=== PATIENT | male | born 1995 | race Caucasian/White ===

== ENCOUNTER 2022-09-07 21:54 | Inpatient (IN) ==
[2022-09-07] MEDS ORDERED: MoRPHine SULFATE 4 MG/ML 1 ML CARP\\VIAL IV STA (22:07)
[2022-09-07] MEDS ORDERED: ONDANSETRON INJ 2 MG/ML 2 ML VIAL IV STA (22:07)
[2022-09-07] MEDS ORDERED: SODIUM CHLORIDE 0.9% 1000ML 1,000 ML IV STA (22:07)
--- NOTE | 2022-09-07 22:30 | Emergency Department Note ---
History of Present Illness General Chief complaint: Abdominal Pain Stated complaint: ABDOMINAL PAIN Time Seen by Provider: 09/07/22 21:59 History of Present Illness This 26-year-old Congolese-speaking gentleman presents to the ER with friend for evaluation of abdominal pain for the past day with nausea and vomiting. Patient denies prior abdominal surgeries, drug allergies tobacco or drug use. Patient denies testicular pain, penile pain, urinary symptoms. No injury to the area. No other concerns per patient. The language line was utilized. Past Med/Surg History Social History Smoking Status: Never smoker Feels Safe at Home: Yes Review of Systems A total of 10 systems reviewed and were otherwise negative Physical Exam Vital Signs Vital Signs - 24 hr 09/07/22 21:56 Temperature 36.7 C Temperature Source Temporal Artery Scan Respiratory Rate 75 H Blood Pressure 109/64 Blood Pressure Mean 79 Pulse Oximetry 96 Oxygen Delivery Method Room Air Sepsis New/Unexplained Change in Mental Status No Sepsis Action Taken by Nursing No Action Required VITALS: Vitals are noted on the nurse's note and reviewed by myself. Vital signs stable. GENERAL: Pleasant gentleman, in no acute distress, nondiaphoretic, well- developed well-nourished. SKIN: The skin was without rashes, erythema, edema, or bruising. There is no tenting of the skin. Capillary reflex less than 2 seconds. HEAD: Normocephalic atraumatic. EARS: External auditory canals clear EYES: Pupils equal round and reactive to light and accommodation. Conjunctivae without injection, sclerae without icterus. Extraocular movements intact. NOSE: Patent, turbinates without inflammation or discharge. MOUTH: Mucous membranes moist. Pharynx without erythema or exudate. Uvula midline. Airway patent. Tongue does not deviate. NECK: Supple without nuchal rigidity. No lymphadenopathy. No thyromegaly. Cervical spine is nontender. No JVD. HEART: Regular rate and rhythm LUNGS: Clear to auscultation bilaterally without wheezes, rales or rhonchi. No retractions or accessory muscle use. ABDOMEN: Positive bowel sounds x 4. Normal tympanic percussion. Soft, diffusely tender with increased tenderness in the right lower quadrant, without masses or organomegaly. Cervantes sign negative. No guarding or rebound tenderness. No CVA tenderness MUSCULOSKELETAL: No muscle atrophy, erythema, or edema noted. NEURO: Patient was alert and oriented to person place and time. Normal se nsation to light and sharp touch. No focal neurological deficits. Course Administered Medications Discontinued Medications Sodium Chloride (Nss 1000ml) 1,000 mls @ 999 mls/hr IV .Q1H1M STA Stop: 09/07/22 23:07 Last Admin: 09/07/22 23:19 Dose: 999 mls/hr Documented By: YAHAIRA Piperacillin Sod/Tazobactam Sod (Zosyn) 4.5 gm in 120 mls @ 240 mls/hr IV NOW ONE Stop: 09/07/22 23:12 Last Admin: 09/07/22 23:18 Dose: 240 mls/hr Documented By: YAHAIRA Ioversol (Optiray 320 100ml) 100 ml IV ONCE ONE Stop: 09/07/22 22:40 Last Admin: 09/07/22 22:39 Dose: 93 ml Documented By: JOHN Morphine Sulfate (Morphine Sulfate 4 Mg/Ml 1 Ml Carp\Vial) 4 mg IV NOW STA Stop: 09/07/22 22:08 Last Admin: 09/07/22 23:18 Dose: 4 mg Documented By: YAHAIRA Ondansetron HCl (Ondansetron Inj 2 Mg/Ml 2 Ml Vial) 4 mg IV NOW STA Stop: 09/07/22 22:08 Last Admin: 09/07/22 23:18 Dose: 4 mg Documented By: YAHAIRA Medical Decision Making Medical Records Attestation: I reviewed the patient's medical records. Home Medications Current Medication List: was personally reviewed by me Laboratory Data Attestation: I reviewed the patient's lab results. 09/07/22 22:18 09/07/22 22:18 Lab Results 09/07/22 09/07/22 09/07/22 Range/Units 22:18 22:18 22:18 WBC 17.71 H (4.8-10.8) K/ul RBC 4.72 (4.70-6.10) M/uL Hgb 14.3 (14.0-18.0) g/dl POC Hgb (14.0-18.0) g/dl Hct 40.9 L (42.0-52.0) % POC Hct (42-52) % MCV 86.7 (80.0-100.0) fL MCH 30.3 (25.0-34.0) pg MCHC 35.0 (32.0-36.0) g/dL RDW Std Deviation 41.8 (36.4-46.3) fL RDW Coeff of Roni 13.2 (11.5-14.5) % Plt Count 281 (130-400) K/uL MPV 9.3 L (9.4-12.4) fL Immature Gran % (Auto) 0.5 % Neut % (Auto) 83.7 % Lymph % (Auto) 6.6 % Lassen % (Auto) 9.0 % Eos % (Auto) 0.0 % Baso % (Auto) 0.2 % Neut # (Auto) 14.82 H (1.40-6.50) K/uL Lymph # (Auto) 1.17 L (1.2-3.4) K/uL Lassen # (Auto) 1.60 H (0.11-0.59) K/uL Eos # (Auto) 0.00 (0-0.50) K/uL Baso # (Auto) 0.03 (0-0.2) K/uL Immature Gran # (Auto) 0.09 (0.01-0.20) K/uL POC Sodium (135-144) mmol/L Sodium 133 L (136-145) mmol/L POC Potassium (3.3-5.0) mmol/L Potassium 3.6 (3.5-5.1) mmol/L POC Chloride (101-112) mmol/L Chloride 100 (98-107) mmol/L Carbon Dioxide 24 (21-32) mmol/L POC Total CO2 (24-31) mmol/L Anion Gap 9 (3-11) POC Anion Gap (16-25) mmol/L POC BUN (7-18) mg/dl BUN 13 (6-23) mg/dl Creatinine 0.84 (0.6-1.4) mg/dl POC Creatinine (0.6-1.3) mg/dl Est Cr Clr Drug Dosing 115.7 ml/min Est GFR ( Amer) 140.1 ml/min Est GFR (Non-Af Amer) 120.8 ml/min BUN/Creatinine Ratio 15.5 (10-20) Glucose 111 H (70-99(Fasting)) mg/dl POC Glucose (other) (70-99) mg/dl Calcium 9.9 (8.6-10.3) mg/dl POC Ioniz Calcium Mikaela (1.12-1.32) mmol/l Total Bilirubin 1.0 (0.2-1.0) mg/dl AST 26 (13-39) U/L ALT 64 H (7-52) U/L Alkaline Phosphatase 92 (34-104) U/L Total Protein 7.6 (6.0-8.3) gm/dl Albumin 4.3 (3.4-5.0) gm/dl Globulin 3.3 (2.5-4.0) gm/dl Albumin/Globulin Ratio 1.3 (0.9-2) Lipase 10 L (11-82) U/L Urine Color Yellow Urine Appearance Clear (Clear) Urine pH 7.5 (4.5-7.5) Ur Specific [place] 1.007 (1.000-1.030) Urine Protein Negative (Negative) Urine Glucose (UA) Negative (Negative) Urine Ketones Negative (Negative) Urine Blood 1+ H (Negative) Urine Nitrite Negative (Negative) Urine Bilirubin Negative (Negative) Urine Urobilinogen Negative (Negative) Ur Leukocyte Esterase Trace H (Negative) Urine WBC (Auto) 1-5 (0-5) /hpf Urine RBC (Auto) 5-10 H (0-4) /hpf U Hyaline Cast (Auto) 0 (0-5) /lpf U Epithel Cells (Auto) 0-5 (0-5) /lpf Urine Bacteria (Auto) Negative (Negative) 09/07/ Range/Units 22:26 WBC (4.8-10.8) K/ul RBC (4.70-6.10) M/uL Hgb (14.0-18.0) g/dl POC Hgb 15.6 (14.0-18.0) g/dl Hct (42.0-52.0) % POC Hct 46 (42-52) % MCV (80.0-100.0) fL MCH (25.0-34.0) pg MCHC (32.0-36.0) g/dL RDW Std Deviation (36.4-46.3) fL RDW Coeff of Roni (11.5-14.5) % Plt Count (130-400) K/uL MPV (9.4-12.4) fL Immature Gran % (Auto) % Neut % (Auto) % Lymph % (Auto) % Lassen % (Auto) % Eos % (Auto) % Baso % (Auto) % Neut # (Auto) (1.40-6.50) K/uL Lymph # (Auto) (1.2-3.4) K/uL Lassen # (Auto) (0.11-0.59) K/uL Eos # (Auto) (0-0.50) K/uL Baso # (Auto) (0-0.2) K/uL Immature Gran # (Auto) (0.01-0.20) K/uL POC Sodium 134 L (135-144) mmol/L Sodium (136-145) mmol/L POC Potassium 3.6 (3.3-5.0) mmol/L Potassium (3.5-5.1) mmol/L POC Chloride 98 L (101-112) mmol/L Chloride (98-107) mmol/L Carbon Dioxide (21-32) mmol/L POC Total CO2 24 (24-31) mmol/L Anion Gap (3-11) POC Anion Gap 17.0 (16-25) mmol/L POC BUN 12 (7-18) mg/dl BUN (6-23) mg/dl Creatinine (0.6-1.4) mg/dl POC Creatinine 0.8 (0.6-1.3) mg/dl Est Cr Clr Drug Dosing ml/min Est GFR ( Amer) ml/min Est GFR (Non-Af Amer) ml/min BUN/Creatinine Ratio (10-20) Glucose (70-99(Fasting)) mg/dl POC Glucose (other) 117 H (70-99) mg/dl Calcium (8.6-10.3) mg/dl POC Ioniz Calcium Mikaela 1.26 (1.12-1.32) mmol/l Total Bilirubin (0.2-1.0) mg/dl AST (13-39) U/L ALT (7-52) U/L Alkaline Phosphatase (34-104) U/L Total Protein (6.0-8.3) gm/dl Albumin (3.4-5.0) gm/dl Globulin (2.5-4.0) gm/dl Albumin/Globulin Ratio (0.9-2) Lipase (11-82) U/L Urine Color Urine Appearance (Clear) Urine pH (4.5-7.5) Ur Specific [place] (1.000-1.030) Urine Protein (Negative) Urine Glucose (UA) (Negative) Urine Ketones (Negative) Urine Blood (Negative) Urine Nitrite (Negative) Urine Bilirubin (Negative) Urine Urobilinogen (Negative) Ur Leukocyte Esterase (Negative) Urine WBC (Auto) (0-5) /hpf Urine RBC (Auto) (0-4) /hpf U Hyaline Cast (Auto) (0-5) /lpf U Epithel Cells (Auto) (0-5) /lpf Urine Bacteria (Auto) (Negative) Imaging Data Attestation: I personally reviewed and interpreted this imaging study as follows: Radiologist's Impression: Abdomen/Pelvis CT 09/07/22 22:07 CR Exam(s): CT ABDOMEN + PELVIS With Contrast IV Amt: 93 ML OPTIRAY 320 EXAM: CT Abdomen and Pelvis With Intravenous Contrast CLINICAL HISTORY: Reason for exam: mid abd pain. TECHNIQUE: Axial computed tomography images of the abdomen and pelvis with intravenous contrast. CTDI is 9.56 mGy and DLP is 452.15 mGy-cm. Automated exposure control was utilized for the study. A dose lowering technique was utilized adhering to the principles of ALARA. CONTRAST: Patient received 93 ML OPTIRAY 320 of IV contrast COMPARISON: No relevant prior studies available. FINDINGS: Lung bases: Unremarkable. No mass. No consolidation. ABDOMEN: Liver: Unremarkable. No mass. Gallbladder and bile ducts: Unremarkable. No calcified stones. No ductal dilation. Pancreas: Unremarkable. No mass. No ductal dilation. Spleen: Unremarkable. No splenomegaly. Adrenals: Unremarkable. No mass. Kidneys and ureters: Unremarkable. No hydronephrosis or delayed nephrogram. Stomach and bowel: Unremarkable. No obstruction. No mucosal thickening. PELVIS: Appendix: Positive for acute appendicitis, consisting of a distended appendix measuring up to 1 cm with wall thickening and periappendiceal fat stranding. No perforation or abscess. Bladder: Unremarkable. No mass. Reproductive: Unremarkable as visualized. ABDOMEN and PELVIS: Intraperitoneal space: Unremarkable. No free air. No significant fluid collection. Bones/joints: No acute fracture. No dislocation. Soft tissues: Unremarkable. Vasculature: Unremarkable. No abdominal aortic aneurysm. Lymph nodes: Unremarkable. No enlarged lymph nodes. IMPRESSION: Positive for acute appendicitis, consisting of a distended appendix measuring up to 1 cm with wall thickening and periappendiceal fat stranding. No perforation or abscess. Communications: Verify Receipt Electronically signed by: Oleg Holloway MD 09/07/22 23:22 PM MDM Narrative Prior records/ancillary studies reviewed. Triage Nursing notes reviewed. Additional history obtained from friend. The patient's history was concerning for abdominal pain. Differential diagnosis: Etiologies such as appendicitis, diverticulitis, PUD, biliary pathology, UTI, pancreatitis, obstruction, mesenteric ischemia, aortic pathology, infections, inflammatory bowel disease, renal colic, as well as others were entertained. Physical examination findings: As above. ER treatment provided: An order was placed for continuous cardiac monitoring. The monitor shows a rate of 60-100 with a sinus rhythm per my Independent interpretation. IV fluids morphine and Zofran were ordered On reassessment the patient felt better. Diagnostics interpreted by me: The labs Independently Interpreted by myself revealed leukocytosis, stable H&H Imaging studies: CT concerning for appendicitis per my independent interpretation Consultation: A consultation was placed with the surgeon Dr. Breen. The case was discussed and diagnostics were reviewed. The patient was evaluated in the ER for further treat ment. Exam and history seem consistent with acute appendicitis. Labs and diagnostics were independent reviewed by myself. Patient started antibiotics. Surgery was consulted and the case was discussed. Patient was admitted to the surgical service. Patient was reassessed multiple times remained stable. Patient is agreeable treatment plan of admission. By the evaluation outlined above emergent etiologies such as diverticulitis, PUD, biliary pathology, UTI, pancreatitis, obstruction, mesenteric ischemia, aortic pathology, inflammatory bowel disease, renal colic, as well as others were deemed relatively unlikely. The pt informed about the findings as listed above. All questions were answered and pleased with the treatment. The chart was completed utilizing [employer] voice recognition software. Grammatical errors, random word insertions, pronoun errors, and incomplete sentences are an occassional consequence of this system due to software limitations, ambient noise, and hardware issues. Any formal questions or concerns about the content, text, or information contained within the body of this dictation should be directly addressed to the physician surgical physician assistant for clarification. Impression & Plan Acute appendicitis Discharge Plan Visit Data Chief Complaint: Abdominal Pain Stated Complaint: ABDOMINAL PAIN ED Provider: Mehdi Mishra ED Midlevel Provider: Carly Venegas Discharge Problem: Acute appendicitis Patient Disposition: Being Evaluated by Surgeon Condition: Good Forms Stand Alone Forms: [facility] Referrals Referrals: PCP,NO [Primary Care Provider] - Acute appendicitis Qualifiers: Acute appendicitis type: with localized peritonitis Appendicitis gangrene presence: unspecified whether gangrene present Appendicitis perforation presence: without perforation Appendicitis abscess presence: without abscess Qualified Code(s): K35.30 - Acute appendicitis with localized peritonitis, without perforation or gangrene
[2022-09-07 22:35] LABS: Appearance Urine Clear (Clear); Bacteria Urine Automated Negative (Negative); Bilirubin Urine Negative (Negative); Blood Urine 1+ (Negative); Cast Urine Automated 0 /lpf (0-5); Color Urine Yellow; Epithelial Cell Urine Auto 0-5 /lpf (0-5); Glucose Urine UA Negative (Negative); Ketones Urine Negative (Negative); Leukocyte Esterase Urine Trace (Negative); Nitrite Urine Negative (Negative); Protein Urine Negative (Negative); Specific Gravity Urine 1.007 (1.000-1.030); Urobilinogen Urine Negative (Negative); pH Urine 7.5 (4.5-7.5)
[2022-09-07 22:36] LABS: Basophils # (auto) 0.03 K/uL (0-0.2); Basophils % (auto) 0.2 %; Hematocrit (blood only) 40.9 % (42.0-52.0); Hemoglobin 14.3 g/dl (14.0-18.0); Immature Granulocytes # (auto) 0.09 K/uL (0.01-0.20); Immature Granulocytes % (auto) 0.5 %; Lymphocytes # (auto) 1.17 K/uL (1.2-3.4); Lymphocytes % (auto) 6.6 %; Mean Corpuscular Hemoglobin 30.3 pg (25.0-34.0); Mean Corpuscular Volume 86.7 fL (80.0-100.0); Mean Platelet Volume 9.3 fL (9.4-12.4); Neutrophils # (auto) 14.82 K/uL (1.40-6.50); Neutrophils % (auto) 83.7 %; Platelet Count 281 K/uL (130-400); RDW Coefficient of Variation 13.2 % (11.5-14.5); RDW Standard Deviation 41.8 fL (36.4-46.3); Red Blood Count 4.72 M/uL (4.70-6.10); White Blood Count 17.71 K/ul (4.8-10.8)
[2022-09-07] MEDS ORDERED: OPTIRAY 320 100ml IV ONE (22:39)
[2022-09-07 22:40] LABS: iSTAT Creatinine 0.8 mg/dl (0.6-1.3); iSTAT Hemoglobin 15.6 g/dl (14.0-18.0); iSTAT Ionized Calcium 1.26 mmol/l (1.12-1.32); iSTAT Potassium 3.6 mmol/L (3.3-5.0)
[2022-09-07] MEDS ORDERED: PIPERACILLIN/TAZOBACTAM 4.5 GM/120 ML BAG IV ONE (22:43)
[2022-09-07 22:51] LABS: Albumin Globulin Ratio 1.3 (0.9-2); Albumin Level 4.3 gm/dl (3.4-5.0); BUN Creatinine Ratio 15.5 (10-20); Calcium 9.9 mg/dl (8.6-10.3); Creatinine Clr Calc Pharmacy 115.7 ml/min; Est GFR (African American) 140.1 ml/min; Est GFR (Non-African American) 120.8 ml/min; Globulin 3.3 gm/dl (2.5-4.0); Potassium 3.6 mmol/L (3.5-5.1); Total Protein 7.6 gm/dl (6.0-8.3)
--- NOTE | 2022-09-07 23:22 | CT Scan Report ---
Exam(s): CT ABDOMEN + PELVIS With Contrast IV Amt: 93 ML OPTIRAY 320 EXAM: CT Abdomen and Pelvis With Intravenous Contrast CLINICAL HISTORY: Reason for exam: mid abd pain. TECHNIQUE: Axial computed tomography images of the abdomen and pelvis with intravenous contrast. CTDI is 9.56 mGy and DLP is 452.15 mGy-cm. Automated exposure control was utilized for the study. A dose lowering technique was utilized adhering to the principles of ALARA. CONTRAST: Patient received 93 ML OPTIRAY 320 of IV contrast COMPARISON: No relevant prior studies available. FINDINGS: Lung bases: Unremarkable. No mass. No consolidation. ABDOMEN: Liver: Unremarkable. No mass. Gallbladder and bile ducts: Unremarkable. No calcified stones. No ductal dilation. Pancreas: Unremarkable. No mass. No ductal dilation. Spleen: Unremarkable. No splenomegaly. Adrenals: Unremarkable. No mass. Kidneys and ureters: Unremarkable. No hydronephrosis or delayed nephrogram. Stomach and bowel: Unremarkable. No obstruction. No mucosal thickening. PELVIS: Appendix: Positive for acute appendicitis, consisting of a distended appendix measuring up to 1 cm with wall thickening and periappendiceal fat stranding. No perforation or abscess. Bladder: Unremarkable. No mass. Reproductive: Unremarkable as visualized. ABDOMEN and PELVIS: Intraperitoneal space: Unremarkable. No free air. No significant fluid collection. Bones/joints: No acute fracture. No dislocation. Soft tissues: Unremarkable. Vasculature: Unremarkable. No abdominal aortic aneurysm. Lymph nodes: Unremarkable. No enlarged lymph nodes. IMPRESSION: Positive for acute appendicitis, consisting of a distended appendix measuring up to 1 cm with wall thickening and periappendiceal fat stranding. No perforation or abscess. Communications: Verify Receipt Electronically signed by: Oleg Holloway MD 09/07/22 23:22 PM
--- NOTE | 2022-09-08 00:15 | Surgery Consultation ---
Date of Consultation September 08, 2022 Assessment & Plan (1) Acute appendicitis: Assessment: Patient is a 26 years old with a gentleman who presented to the ED with 2-day history right lower quadrant pain/patient was started had a epigastric pain yesterday and later on transferred to right lower quadrant pain. the pain is dull with nausea and vomiting. CT Scan -IMPRESSION: Positive for acute appendicitis, consisting of a distended appendix measuring up to 1 cm with wall thickening and periappendiceal fat stranding. No perforation or abscess. IMP: acute appendicitis, plan, based on patient history and physical exam labs CT scan finding. I recommend to do a laparoscopy appendectomy possible open. I did talk to patient about benefit risk and alternative of the procedure. The risk may include but not limited to such as bleeding, infection, abscess, injury or other organs, incisional hernia and bowel obstruction . pt understood, he agreed with surgery, he signed informed consent, I answered all questions. pre-op iv antibiotic. 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 the pain is dull with nausea and vomiting. Patient denying fever or diarrhea. WBC 17,00. CT scan shows acute appendicitis. Patient speech Slovenian. 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 Allergies Allergy/AdvReac Type Severity Reaction Status Date / Time No Known Allergies Allergy Verified 09/08/22 00:16 Patient History Social History Smoking Status: Never smoker Feels Safe at Home: Yes Review of Systems Constitutional: as per Subjective / HPI Eyes: as per Subjective / HPI Respiratory: as per Subjective / HPI Cardiovascular: as per Subjective / HPI Gastrointestinal: as per Subjective / HPI Genitourinary: + as per Subjective / HPI Musculoskeletal: as per Subjective / HPI Neurologic: as per Subjective / HPI Psychiatric: as per Subjective / HPI Endocrine: as per Subjective / HPI Hematologic / Lymphatic: as per Subjective / HPI Physical Exam Constitutional: WD/WN, vitals as above Eyes: PERRL, conjunctivae normal, anicteric sclerae Neck: trachea midline, no thyromegaly Respiratory: normal respiratory effort, lungs clear to auscultation Cardiovascular: RRR, no murmur, no edema Gastrointestinal (Abdomen): soft, tenderness at RLQ, with rebound pain, no distend, BS +. Musculoskeletal: no cyanosis or clubbing, extremities motor strength 5/5 Neurologic: patellar DTR's 2+ bilat, sensation intact Psychiatric: A+Ox3, euthymic affect Results & Data Vital Signs (Past 12 Hours) Vital Signs Temp Resp BP Pulse Ox O2 Del Method 09/07/22 21:56 36.7 C 75 H 109/64 96 Room Air Laboratory Results Lab Results 09/07/22 09/07/22 09/07/22 Range/Units 22:18 22:18 22:18 WBC 17.71 H (4.8-10.8) K/ul RBC 4.72 (4.70-6.10) M/uL Hgb 14.3 (14.0-18.0) g/dl POC Hgb (14.0-18.0) g/dl Hct 40.9 L (42.0-52.0) % POC Hct (42-52) % MCV 86.7 (80.0-100.0) fL MCH 30.3 (25.0-34.0) pg MCHC 35.0 (32.0-36.0) g/dL RDW Std Deviation 41.8 (36.4-46.3) fL RDW Coeff of Roni 13.2 (11.5-14.5) % Plt Count 281 (130-400) K/uL MPV 9.3 L (9.4-12.4) fL Immature Gran % (Auto) 0.5 % Neut % (Auto) 83.7 % Lymph % (Auto) 6.6 % [place] % (Auto) 9.0 % Eos % (Auto) 0.0 % Baso % (Auto) 0.2 % Neut # (Auto) 14.82 H (1.40-6.50) K/uL Lymph # (Auto) 1.17 L (1.2-3.4) K/uL [place] # (Auto) 1.60 H (0.11-0.59) K/uL Eos # (Auto) 0.00 (0-0.50) K/uL Baso # (Auto) 0.03 (0-0.2) K/uL Immature Gran # (Auto) 0.09 (0.01-0.20) K/uL POC Sodium (135-144) mmol/L Sodium 133 L (136-145) mmol/L POC Potassium (3.3-5.0) mmol/L Potassium 3.6 (3.5-5.1) mmol/L POC Chloride (101-112) mmol/L Chloride 100 (98-107) mmol/L Carbon Dioxide 24 (21-32) mmol/L POC Total CO2 (24-31) mmol/L Anion Gap 9 (3-11) POC Anion Gap (16-25) mmol/L POC BUN (7-18) mg/dl BUN 13 (6-23) mg/dl Creatinine 0.84 (0.6-1.4) mg/dl POC Creatinine (0.6-1.3) mg/dl Est Cr Clr Drug Dosing 115.7 ml/min Est GFR ( Amer) 140.1 ml/min Est GFR (Non-Af Amer) 120.8 ml/min BUN/Creatinine Ratio 15.5 (10-20) Glucose 111 H (70-99(Fasting)) mg/dl POC Glucose (other) (70-99) mg/dl Calcium 9.9 (8.6-10.3) mg/dl POC Ioniz Calcium Mikaela (1.12-1.32) mmol/l Total Bilirubin 1.0 (0.2-1.0) mg/dl AST 26 (13-39) U/L ALT 64 H (7-52) U/L Alkaline Phosphatase 92 (34-104) U/L Total Protein 7.6 (6.0-8.3) gm/dl Albumin 4.3 (3.4-5.0) gm/dl Globulin 3.3 (2.5-4.0) gm/dl Albumin/Globulin Ratio 1.3 (0.9-2) Lipase 10 L (11-82) U/L Urine Color Yellow Urine Appearance Clear (Clear) Urine pH 7.5 (4.5-7.5) Ur Specific [place] 1.007 (1.000-1.030) Urine Protein Negative (Negative) Urine Glucose (UA) Negative (Negative) Urine Ketones Negative (Negative) Urine Blood 1+ H (Negative) Urine Nitrite Negative (Negative) Urine Bilirubin Negative (Negative) Urine Urobilinogen Negative (Negative) Ur Leukocyte Esterase Trace H (Negative) Urine WBC (Auto) 1-5 (0-5) /hpf Urine RBC (Auto) 5-10 H (0-4) /hpf U Hyaline Cast (Auto) 0 (0-5) /lpf U Epithel Cells (Auto) 0-5 (0-5) /lpf Urine Bacteria (Auto) Negative (Negative) 09/07/22 Range/Units 22:26 WBC (4.8-10.8) K/ul RBC (4.70-6.10) M/uL Hgb (14.0-18.0) g/dl POC Hgb 15.6 (14.0-18.0) g/dl Hct (42.0-52.0) % POC Hct 46 (42-52) % MCV (80.0-100.0) fL MCH (25.0-34.0) pg MCHC (32.0-36.0) g/dL RDW Std Deviation (36.4-46.3) fL RDW Coeff of Roni (11.5-14.5) % Plt Count (130-400) K/uL MPV (9.4-12.4) fL Immature Gran % (Auto) % Neut % (Auto) % Lymph % (Auto) % [place] % (Auto) % Eos % (Auto) % Baso % (Auto) % Neut # (Auto) (1.40-6.50) K/uL Lymph # (Auto) (1.2-3.4) K/uL [place] # (Auto) (0.11-0.59) K/uL Eos # (Auto) (0-0.50) K/uL Baso # (Auto) (0-0.2) K/uL Immature Gran # (Auto) (0.01-0.20) K/uL POC Sodium 134 L (135-144) mmol/L Sodium (136-145) mmol/L POC Potassium 3.6 (3.3-5.0) mmol/L Potassium (3.5-5.1) mmol/L POC Chloride 98 L (101-112) mmol/L Chloride (98-107) mmol/L Carbon Dioxide (21-32) mmol/L POC Total CO2 24 (24-31) mmol/L Anion Gap (3-11) POC Anion Gap 17.0 (16-25) mmol/L POC BUN 12 (7-18) mg/dl BUN (6-23) mg/dl Creatinine (0.6-1.4) mg/dl POC Creatinine 0.8 (0.6-1.3) mg/dl Est Cr Clr Drug Dosing ml/min Est GFR ( Amer) ml/min Est GFR (Non-Af Amer) ml/min BUN/Creatinine Ratio (10-20) Glucose (70-99(Fasting)) mg/dl POC Glucose (other) 117 H (70-99) mg/dl Calcium (8.6-10.3) mg/dl POC Ioniz Calcium Mikaela 1.26 (1.12-1.32) mmol/l Total Bilirubin (0.2-1.0) mg/dl AST (13-39) U/L ALT (7-52) U/L Alkaline Phosphatase (34-104) U/L Total Protein (6.0-8.3) gm/dl Albumin (3.4-5.0) gm/dl Globulin (2.5-4.0) gm/dl Albumin/Globulin Ratio (0.9-2) Lipase (11-82) U/L Urine Color Urine Appearance (Clear) Urine pH (4.5-7.5) Ur Specific [place] (1.000-1.030) Urine Protein (Negative) Urine Glucose (UA) (Negative) Urine Ketones (Negative) Urine Blood (Negative) Urine Nitrite (Negative) Urine Bilirubin (Negative) Urine Urobilinogen (Negative) Ur Leukocyte Esterase (Negative) Urine WBC (Auto) (0-5) /hpf Urine RBC (Auto) (0-4) /hpf U Hyaline Cast (Auto) (0-5) /lpf U Epithel Cells (Auto) (0-5) /lpf Urine Bacteria (Auto) (Negative) Diagnostic Findings ADDENDUM: 09/07/22 23:34 Verify Receipt Verified receipt with JASPREET Del Rosario for CHIVO Lawrence i on 09/07 23:34 (-04:00) Electronically signed by: Oleg Holloway MD Electronically signed by: Oleg Holloway MD 09/07/22 23:22 PM ADDENDUM END Exam(s): CT ABDOMEN + PELVIS With Contrast IV Amt: 93 ML OPTIRAY 320 EXAM: CT Abdomen and Pelvis With Intravenous Contrast CLINICAL HISTORY: Reason for exam: mid abd pain. TECHNIQUE: Axial computed tomography images of the abdomen and pelvis with intravenous contrast. CTDI is 9.56 mGy and DLP is 452.15 mGy-cm. Automated exposure control was utilized for the study. A dose lowering technique was utilized adhering to the principles of ALARA. CONTRAST: Patient received 93 ML OPTIRAY 320 of IV contrast COMPARISON: No relevant prior studies available. FINDINGS: Lung bases: Unremarkable. No mass. No consolidation. ABDOMEN: Liver: Unremarkable. No mass. Gallbladder and bile ducts: Unremarkable. No calcified stones. No ductal dilation. Pancreas: Unremarkable. No mass. No ductal dilation. Spleen: Unremarkable. No splenomegaly. Adrenals: Unremarkable. No mass. Kidneys and ureters: Unremarkable. No hydronephrosis or delayed nephrogram. Stomach and bowel: Unremarkable. No obstruction. No mucosal thickening. PELVIS: Appendix: Positive for acute appendicitis, consisting of a distended appendix measuring up to 1 cm with wall thickening and periappendiceal fat stranding. No perforation or abscess. Bladder: Unremarkable. No mass. Reproductive: Unremarkable as visualized. ABDOMEN and PELVIS: Intraperitoneal space: Unremarkable. No free air. No significant fluid collection. Bones/joints: No acute fracture. No dislocation. Soft tissues: Unremarkable. Vasculature: Unremarkable. No abdominal aortic aneurysm. Lymph nodes: Unremarkable. No enlarged lymph nodes. IMPRESSION: Positive for acute appendicitis, consisting of a distended appendix measuring up to 1 cm with wall thickening and periappendiceal fat stranding. No perforation or abscess. (1) Acute appendicitis Acute appendicitis type: with localized peritonitis Appendicitis abscess presence: without abscess Appendicitis gangrene presence: unspecified whether gangrene present Appendicitis perforation presence: without perforation Qualified Code(s): K35.30 - Acute appendicitis with localized peritonitis, without perforation or gangrene
[2022-09-08] MEDS ORDERED: cefOXitin 2,000 MG/60 ML BAG IV STA (00:17)
--- NOTE | 2022-09-08 00:22 | History & Physical Bridge Note ---
Date of Service September 08, 2022 History & Physical Bridge Note I have examined the patient, reviewed the History & Physical and in the interval since the performance of the History & Physical I have noted the following changes of clinical significance: no changes noted
[2022-09-08] MEDS ORDERED: ePHEDrine sulfate 50 MG/ML AMP IV PRN (00:27)
[2022-09-08] MEDS ORDERED: HYDROmorphone INJ 2 MG/ML SYR/VIAL IV PRN (00:27)
[2022-09-08] MEDS ORDERED: PROMETHAZINE HCL 12.5 MG in SODIUM CHLORIDE 0.9% 50 ML IV PRN (00:27)
[2022-09-08] MEDS ORDERED: fentaNYL citrate PF 100 MCG/2 ML VIAL IV PRN (00:27)
[2022-09-08] MEDS ORDERED: ONDANSETRON INJ 2 MG/ML 2 ML VIAL IV PRN ×2 (00:27→02:19)
[2022-09-08] MEDS ORDERED: KETOROLAC 30 MG/ML VIAL IV PRN (00:27)
[2022-09-08] MEDS ORDERED: ATROPINE SULFATE 0.1 MG/ML 10ML SYR IV PRN (00:27)
--- NOTE | 2022-09-08 00:27 | Anesthesiology Consultation ---
Date of Service September 08, 2022 Assessment & Plan Chart Review Chart Review: Acceptable Risk for Surgery Consults Requested none History Surgery Operation Date: 09/08/22 01:00 Proposed Procedures p Laparoscopic Appendectomy - Conrado Breen MD Height/Weight Height: 5 ft 6 in Weight: 61.4 kg Allergies Allergy/AdvReac Type Severity Reaction Status Date / Time No Known Allergies Allergy Verified 09/08/22 00:16 Social History Smoking Status: Never smoker Physical Exam Vital Signs Last Vital Signs Temp 36.7 C 09/07/22 21:56 Resp 75 H 09/07/22 21:56 BP 109/64 09/07/22 21:56 Pulse Ox 96 09/07/22 21:56 O2 Del Method Room Air 09/07/22 21:56 Testing Laboratory Results 09/07/22 22:18 09/07/22 22:18 Urine Color Yellow 09/07/22 22:18 Urine Appearance Clear (Clear) 09/07/22 22:18 Urine pH 7.5 (4.5-7.5) 09/07/22 22:18 Ur Specific [place] 1.007 (1.000-1.030) 09/07/22 22:18 Urine Protein Negative (Negative) 09/07/22 22:18 Urine Glucose (UA) Negative (Negative) 09/07/22 22:18 Urine Ketones Negative (Negative) 09/07/22 22:18 Urine Nitrite Negative (Negative) 09/07/22 22:18 Ur Leukocyte Esterase Trace (Negative) H 09/07/22 22:18 Urine WBC (Auto) 1-5 /hpf (0-5) 09/07/22 22:18 Urine RBC (Auto) 5-10 /hpf (0-4) H 09/07/22 22:18 U Hyaline Cast (Auto) 0 /lpf (0-5) 09/07/22 22:18 U Epithel Cells (Auto) 0-5 /lpf (0-5) 09/07/22 22:18 Urine Bacteria (Auto) Negative (Negative) 09/07/22 22:18 09/07/22 22:26 POC Glucose (other) 117 H
[2022-09-08] MEDS ORDERED: MIDAZOLAM HCL 1 MG/ML 2ML VIAL ONE (00:29)
[2022-09-08] MEDS ORDERED: fentaNYL citrate PF 100 MCG/2 ML VIAL ONE ×2 (00:29→01:55)
[2022-09-08] MEDS ORDERED: PROPOFOL IV EMULSION 10 MG/ML 20 ML VIAL IV ONE (00:32)
[2022-09-08] MEDS ORDERED: DEXAMETHASONE SOD INJ 4 MG/ML VIAL ONE (00:32)
[2022-09-08] MEDS ORDERED: ONDANSETRON INJ 2 MG/ML 2 ML VIAL ONE (00:32)
[2022-09-08] MEDS ORDERED: ROCURONIUM BROMIDE 10 MG/ML 5 ML VIAL IV ONE (00:32)
[2022-09-08] MEDS ORDERED: LIDOCAINE 2% 2 ML VIAL/AMP(20MG/ML) INFIL ONE (00:32)
[2022-09-08] MEDS ORDERED: NEOSTIGMINE METHYLSULFATE 1 MG/ML 10ML VIAL ONE (00:33)
[2022-09-08] MEDS ORDERED: GLYCOPYRROLATE 0.2 MG/ML VIAL ONE (00:33)
[2022-09-08] MEDS ORDERED: BUPIVACAINE 0.5 % 5 MG/1 ML MPF 30ML VIAL ONE (01:11)
[2022-09-08] MEDS ORDERED: BACITRACIN OINT 14 GM TUBE ONE (01:11)
[2022-09-08] MEDS ORDERED: LIDOCAINE 1% LOCAL 20 ML VIAL ONE (01:11)
--- NOTE | 2022-09-08 02:08 | Post Operative Brief Note ---
Immediate Post Op Note v1 Date of Surgery September 08, 2022 Pre & Post Diagnosis Operation Date: 09/08/22 01:00 Pre-Op Diagnosis: Acute Appendicitis Post-Op Diagnosis: Acute Appendicitis I identified the patient and participated in the time-out.: Yes Procedure Operation Date: 09/08/22 01:00 Actual Procedures p Laparoscopic Appendectomy - Conrado Breen MD Surgeon Conrado Breen MD Dna Analyst seismology technical officer Estimated Blood Loss 10 Findings Consistent with Post-Op Diagnosis acute appendicitis. Fluids 700ml Specimens appendix Anesthesia Type General Complications none Disposition Accompanied Patient To Recovery: Yes
[2022-09-08] MEDS ORDERED: HYDROmorphone INJ 0.5 MG/0.5 ML SYR IV PRN (02:19)
[2022-09-08] MEDS ORDERED: oxyCODONE/ACETAMINOPHEN 5mg/325mg TAB PO PRN (02:19)
--- NOTE | 2022-09-08 02:20 | Operative Report ---
Post Operative Report Pre & Post Diagnosis Operation Date: 09/08/22 01:00 Pre-Op Diagnosis: Acute Appendicitis Post-Op Diagnosis: Acute Appendicitis I identified the patient and participated in the time-out.: Yes Procedure Operation Date: 09/08/22 01:00 Actual Procedures p Laparoscopic Appendectomy(Not Applicable) - Conrado Breen MD Surgeon Conrado Breen MD Termite Control Service Representative applied technologist Estimated Blood Loss 10 Findings Consistent with Post-Op Diagnosis acute appendicitis Fluids 700ml Specimens appendix Anesthesia Type General Complications none Indications Patient is a 26 years old gentleman presents to ER with RLQ pain, CT scan diagnosis- acute appendicitis. I recommend to do a laparoscopy appendectomy possible open. I did talk to patient about benefits, risks and alternatives o f the procedure, risks may include but not limited to such as bleeding, infection, abscess, injury or other organs, incisional hernia, and bowel obstruction patient understood, he signed informed consent. I answered all questions Description of Procedure After identified patient to verify procedure, we brought patient to the OR and put the patient on the supine position on the OR table. Patient received a SCD on bilateral legs to prevent DVT. Patient received 2 g cefoxitin IV for prophylactic antibiotic. Patient received general anesthesia without difficulty. The abdomen was propped and dropped in routine fashion. After timeout, I injections of local anesthesia by using 1% lidocaine mixed with 0.5% Marcaine around umbilical area. Make a small transverse incision just above the umbilical. Dissection subcutaneous layer reaches the fascial layer open peritoneal layer in the direct region. Inserted a Valentino trocar in contact to CO2 to create pneumoperitoneum for low rate is a 6 L/min pressure no more than 14 mmHg. Once we get a nice pneumoperitoneum we put the camera in and look around the abdomen. Showing acute appendicitis, no perforation. Normal finding on the small bowel large bowel. The put another two 5 mm trocar on the left lower quadrant area. We used a harmonic to take down the appendiceal. Once identified the base of the appendix. The use 45 mm Endo BETY staple transection of the base of appendix. Recheck at the staple line intact no active bleeding. Remove appendix through the patch back. There is a very inserted Valentino trocar and connected to CO2 to create pneumoperitoneum again look around the abdomen, staple line intact no leak no active bleeding, then we removed all trocars under direct vision no active bleeding from trocar site, pneumoperitoneum was released. Close umbilical incision fascia layer by using 0 Vicryl [id number] x2 closed subcutaneous layer with 2-0 Vicryl interrupted, close skin by using 4-0 Vicryl continuous running close another two 5-minute trocar site the skin only by use of 4-0 Vicryl and put dressing on, the patient tolerated procedure well. all instrument needle sponge count correct x2 in the case. patient was transferred to recovery room in stable condition. the specimen sent to pathology. I attest to the content of the Intraoperative Record and any orders documented therein. Any exceptions are noted below. I attest to the content of the Intraoperative Record and any orders documented therein. Any exceptions are noted below.
--- NOTE | 2022-09-08 03:00 | Anesthesiology Progress Note ---
Date of Service September 08, 2022 Anesthesia Post Procedure Vital Signs Vital Signs: Temp Pulse Pulse Resp BP BP Pulse Ox 09/08/22 02:50 36.9 C 53 L 16 104/52 L 96 09/08/22 02:40 115/59 L 09/08/22 02:40 37.0 C 57 L 20 115/59 L 96 09/08/22 02:31 103/47 L 09/08/22 02:31 50 L 13 99 09/08/22 02:30 52 L 13 103/47 L 99 09/08/22 02:21 105/54 L 09/08/22 02:21 54 L 21 105/54 L 98 09/08/22 02:20 50 L 16 99 09/08/22 02:18 37.0 C 97 09/08/22 00:20 68 16 96/60 L 98 09/07/22 23:50 55 L 16 110/62 98 09/07/22 21:56 36.7 C 75 H 109/64 96 O2 Del Method O2 Flow Rate 09/08/22 02:50 09/08/22 02:40 09/08/22 02:40 Room Air 09/08/22 02:31 09/08/22 02:31 09/08/22 02:30 Room Air 09/08/22 02:21 09/08/22 02:21 2 09/08/22 02:20 2 09/08/22 02:18 Nasal Cannula 2 09/08/22 00:20 09/07/22 23:50 Room Air 09/07/22 21:56 Room Air Pain Intensity Abdomen: Pain Intensity: 5 Transfer of Care Handoff Completed per policy Notes Mental Status: alert / awake / arousable and participated in evaluation Patient Amnestic to Procedure: Yes Nausea / Vomiting: adequately controlled Pain: adequately controlled Airway Patency, RR, SpO2: stable & adequate BP & HR: stable & adequate Hydration State: stable & adequate Anesthetic Complications: no major complications apparent
[2022-09-08] MEDS ORDERED: LACTATED RINGER'S 1,000 ML IV SCH (03:15)
[2022-09-08] MEDS: cefOXitin 2,000 MG in DEXTROSE 5% 50 ML IV SCH ×3 (05:57→17:19)
[2022-09-08 07:04] LABS: Hematocrit (blood only) 37.9 % (42.0-52.0); Hemoglobin 13.2 g/dl (14.0-18.0); Mean Corpuscular Hemoglobin 30.6 pg (25.0-34.0); Mean Corpuscular Hgb Conc 34.8 g/dL (32.0-36.0); Mean Corpuscular Volume 87.7 fL (80.0-100.0); Mean Platelet Volume 9.4 fL (9.4-12.4); Platelet Count 263 K/uL (130-400); RDW Coefficient of Variation 13.5 % (11.5-14.5); RDW Standard Deviation 43.3 fL (36.4-46.3); Red Blood Count 4.32 M/uL (4.70-6.10); White Blood Count 14.68 K/ul (4.8-10.8)
[2022-09-08 07:53] LABS: Basophils # (auto) 0.02 K/uL (0-0.2); Basophils % (auto) 0.1 %; Immature Granulocytes # (auto) 0.06 K/uL (0.01-0.20); Immature Granulocytes % (auto) 0.4 %; Lymphocytes # (auto) 0.75 K/uL (1.2-3.4); Lymphocytes % (auto) 5.1 %; Monocytes # (auto) 0.43 K/uL (0.11-0.59); Monocytes % (auto) 2.9 %; Neutrophils # (auto) 13.42 K/uL (1.40-6.50); Neutrophils % (auto) 91.5 %
[2022-09-08] MEDS ORDERED: ACETAMINOPHEN 325 MG TAB PO PRN (12:36)
--- NOTE | 2022-09-08 12:50 | Surgery Progress Note ---
Date of Service September 08, 2022 Assessment & Plan (1) Acute appendicitis: Plan: POD # 0 s/p lap appy leukocytosis improved to 14k, afebrile postop pain controlled Plan: continue iv cefoxitin for now advance diet as tolerated pain management as needed ambulate hallway discharge home tomorrow morning d/c iv fluids Dr. corcoran has seen and examined patient agrees with above Admission and Anticipated Discharge Date Admission Date: September 08, 2022 Subjective limited ROS as patient mostly Mongolian speaking, Ipad for translation unable to be started but patient states pain controlled Physical Exam Constitutional: WD/WN, vitals as above comfortable; no acute distress and not ill appearing Respiratory: normal respiratory effort; no respiratory distress Gastrointestinal (Abdomen): Inspection/Auscultation: abdomen normal to inspection and + abdominal surgical incision (covered , c/d/i) Percussion/Palpation: + abdomen tender (at incision sites) and abdomen soft; no guarding Skin: no rashes, warm and dry Psychiatric: Orientation: alert and oriented x 3 Results & Data Vital Signs (Past 12 Hours) Vital Signs Temp Pulse Pulse Resp BP BP BP 09/08/22 07:31 36.6 C 62 18 94/54 L 09/08/22 05:59 36.7 C 55 L 14 96/49 L 09/08/22 05:23 36.5 C 54 L 16 91/50 L 09/08/22 03:40 37.0 C 62 16 97/55 L 09/08/22 04:13 36.8 C 58 L 16 101/54 L 09/08/22 03:00 37.3 C 56 L 16 102/55 L 09/08/22 02:50 36.9 C 53 L 16 104/52 L 09/08/22 02:40 115/59 L 09/08/22 02:40 37.0 C 57 L 20 115/59 L 09/08/22 02:31 103/47 L 09/08/22 02:31 50 L 13 09/08/22 02:30 52 L 13 103/47 L 09/08/22 02:21 105/54 L 09/08/22 02:21 54 L 21 105/54 L 09/08/22 02:20 50 L 16 09/08/22 02:18 37.0 C Pulse Ox O2 Del Method O2 Flow Rate 09/08/22 07:31 96 Room Air 09/08/22 05:59 97 Room Air 09/08/22 05:23 94 Room Air 09/08/22 03:40 96 Room Air 09/08/22 04:13 96 Room Air 09/08/22 03:00 98 Room Air 09/08/22 02:50 96 09/08/22 02:40 09/08/22 02:40 96 Room Air 09/08/22 02:31 09/08/22 02:31 99 09/08/22 02:30 99 Room Air 09/08/22 02:21 09/08/22 02:21 98 2 09/08/22 02:20 99 2 09/08/22 02:18 97 Nasal Cannula 2 Laboratory Results 09/08/22 09/08/22 09/07/22 Range/Units 06:34 06:10 22:26 WBC 14.68 H (4.8-10.8) K/ul RBC 4.32 L (4.70-6.10) M/uL Hgb 13.2 L (14.0-18.0) g/dl POC Hgb 15.6 (14.0-18.0) g/dl Hct 37.9 L (42.0-52.0) % POC Hct 46 (42-52) % MCV 87.7 (80.0-100.0) fL MCH 30.6 (25.0-34.0) pg MCHC 34.8 (32.0-36.0) g/dL RDW Std Deviation 43.3 (36.4-46.3) fL RDW Coeff of Roni 13.5 (11.5-14.5) % Plt Count 263 (130-400) K/uL MPV 9.4 (9.4-12.4) fL Immature Gran % (Auto) 0.4 % Neut % (Auto) 91.5 % Lymph % (Auto) 5.1 % [place] % (Auto) 2.9 % Eos % (Auto) 0.0 % Baso % (Auto) 0.1 % Neut # (Auto) 13.42 H (1.40-6.50) K/uL Lymph # (Auto) 0.75 L (1.2-3.4) K/uL [place] # (Auto) 0.43 (0.11-0.59) K/uL Eos # (Auto) 0.00 (0-0.50) K/uL Baso # (Auto) 0.02 (0-0.2) K/uL Immature Gran # (Auto) 0.06 (0.01-0.20) K/uL POC Sodium 134 L (135-144) mmol/L Sodium (136-145) mmol/L POC Potassium 3.6 (3.3-5.0) mmol/L Potassium (3.5-5.1) mmol/L POC Chloride 98 L (101-112) mmol/L Chloride (98-107) mmol/L Carbon Dioxide (21-32) mmol/L POC Total CO2 24 (24-31) mmol/L Anion Gap (3-11) POC Anion Gap 17.0 (16-25) mmol/L POC BUN 12 (7-18) mg/dl BUN (6-23) mg/dl Creatinine (0.6-1.4) mg/dl POC Creatinine 0.8 (0.6-1.3) mg/dl Est Cr Clr Drug Dosing ml/min Est GFR ( Amer) ml/min Est GFR (Non-Af Amer) ml/min BUN/Creatinine Ratio (10-20) Glucose (70-99(Fasting)) mg/dl POC Glucose (other) 117 H (70-99) mg/dl Calcium (8.6-10.3) mg/dl POC Ioniz Calcium Mikaela 1.26 (1.12-1.32) mmol/l Total Bilirubin (0.2-1.0) mg/dl AST (13-39) U/L ALT (7-52) U/L Alkaline Phosphatase (34-104) U/L Total Protein (6.0-8.3) gm/dl Albumin (3.4-5.0) gm/dl Globulin (2.5-4.0) gm/dl Albumin/Globulin Ratio (0.9-2) Lipase (11-82) U/L Urine Color Urine Appearance (Clear) Urine pH (4.5-7.5) Ur Specific [place] (1.000-1.030) Urine Protein (Negative) Urine Glucose (UA) (Negative) Urine Ketones (Negative) Urine Blood (Negative) Urine Nitrite (Negative) Urine Bilirubin (Negative) Urine Urobilinogen (Negative) Ur Leukocyte Esterase (Negative) Urine WBC (Auto) (0-5) /hpf Urine RBC (Auto) (0-4) /hpf U Hyaline Cast (Auto) (0-5) /lpf U Epithel Cells (Auto) (0-5) /lpf Urine Bacteria (Auto) (Negative) SARS-CoV-2, RNA, NAAT NEGATIVE (NEGATIVE) 09/07/22 09/07/22 09/07/22 Range/Units 22:18 22:18 22:18 WBC 17.71 H (4.8-10.8) K/ul RBC 4.72 (4.70-6.10) M/uL Hgb 14.3 (14.0-18.0) g/dl POC Hgb (14.0-18.0) g/dl Hct 40.9 L (42.0-52.0) % POC Hct (42-52) % MCV 86.7 (80.0-100.0) fL MCH 30.3 (25.0-34.0) pg MCHC 35.0 (32.0-36.0) g/dL RDW Std Deviation 41.8 (36.4-46.3) fL RDW Coeff of Roni 13.2 (11.5-14.5) % Plt Count 281 (130-400) K/uL MPV 9.3 L (9.4-12.4) fL Immature Gran % (Auto) 0.5 % Neut % (Auto) 83.7 % Lymph % (Auto) 6.6 % [place] % (Auto) 9.0 % Eos % (Auto) 0.0 % Baso % (Auto) 0.2 % Neut # (Auto) 14.82 H (1.40-6.50) K/uL Lymph # (Auto) 1.17 L (1.2-3.4) K/uL [place] # (Auto) 1.60 H (0.11-0.59) K/uL Eos # (Auto) 0.00 (0-0.50) K/uL Baso # (Auto) 0.03 (0-0.2) K/uL Immature Gran # (Auto) 0.09 (0.01-0.20) K/uL POC Sodium (135-144) mmol/L Sodium 133 L (136-145) mmol/L POC Potassium (3.3-5.0) mmol/L Potassium 3.6 (3.5-5.1) mmol/L POC Chloride (101-112) mmol/L Chloride 100 (98-107) mmol/L Carbon Dioxide 24 (21-32) mmol/L POC Total CO2 (24-31) mmol/L Anion Gap 9 (3-11) POC Anion Gap (16-25) mmol/L POC BUN (7-18) mg/dl BUN 13 (6-23) mg/dl Creatinine 0.84 (0.6-1.4) mg/dl POC Creatinine (0.6-1.3) mg/dl Est Cr Clr Drug Dosing 115.7 ml/min Est GFR ( Amer) 140.1 ml/min Est GFR (Non-Af Amer) 120.8 ml/min BUN/Creatinine Ratio 15.5 (10-20) Glucose 111 H (70-99(Fasting)) mg/dl POC Glucose (other) (70-99) mg/dl Calcium 9.9 (8.6-10.3) mg/dl POC Ioniz Calcium Mikaela (1.12-1.32) mmol/l Total Bilirubin 1.0 (0.2-1.0) mg/dl AST 26 (13-39) U/L ALT 64 H (7-52) U/L Alkaline Phosphatase 92 (34-104) U/L Total Protein 7.6 (6.0-8.3) gm/dl Albumin 4.3 (3.4-5.0) gm/dl Globulin 3.3 (2.5-4.0) gm/dl Albumin/Globulin Ratio 1.3 (0.9-2) Lipase 10 L (11-82) U/L Urine Color Yellow Urine Appearance Clear (Clear) Urine pH 7.5 (4.5-7.5) Ur Specific [place] 1.007 (1.000-1.030) Urine Protein Negative (Negative) Urine Glucose (UA) Negative (Negative) Urine Ketones Negative (Negative) Urine Blood 1+ H (Negative) Urine Nitrite Negative (Negative) Urine Bilirubin Negative (Negative) Urine Urobilinogen Negative (Negative) Ur Leukocyte Esterase Trace H (Negative) Urine WBC (Auto) 1-5 (0-5) /hpf Urine RBC (Auto) 5-10 H (0-4) /hpf U Hyaline Cast (Auto) 0 (0-5) /lpf U Epithel Cells (Auto) 0-5 (0-5) /lpf Urine Bacteria (Auto) Negative (Negative) SARS-CoV-2, RNA, NAAT (NEGATIVE) (1) Acute appendicitis Acute appendicitis type: with localized peritonitis Appendicitis abscess presence: without abscess Appendicitis gangrene presence: unspecified whether gangrene present Appendicitis perforation presence: without perforation Qualified Code(s): K35.30 - Acute appendicitis with localized peritonitis, without perforation or gangrene
[2022-09-09] MEDS: cefOXitin 2,000 MG in DEXTROSE 5% 50 ML IV SCH ×2 (00:59→06:06)
[2022-09-09 07:13] LABS: Basophils # (auto) 0.03 K/uL (0-0.2); Basophils % (auto) 0.4 %; Eosinophils # (auto) 0.04 K/uL (0-0.50); Eosinophils % (auto) 0.5 %; Hemoglobin 11.9 g/dl (14.0-18.0); Immature Granulocytes # (auto) 0.01 K/uL (0.01-0.20); Immature Granulocytes % (auto) 0.1 %; Lymphocytes # (auto) 2.75 K/uL (1.2-3.4); Lymphocytes % (auto) 33.5 %; Mean Corpuscular Hemoglobin 30.1 pg (25.0-34.0); Mean Corpuscular Volume 88.4 fL (80.0-100.0); Mean Platelet Volume 9.8 fL (9.4-12.4); Monocytes # (auto) 0.75 K/uL (0.11-0.59); Monocytes % (auto) 9.1 %; Neutrophils # (auto) 4.63 K/uL (1.40-6.50); Neutrophils % (auto) 56.4 %; Platelet Count 251 K/uL (130-400); RDW Coefficient of Variation 13.5 % (11.5-14.5); RDW Standard Deviation 44.1 fL (36.4-46.3); Red Blood Count 3.96 M/uL (4.70-6.10); White Blood Count 8.21 K/ul (4.8-10.8)
--- NOTE | 2022-09-09 10:39 | Discharge Summary ---
Date of Service September 09, 2022 Admission HPI Per Admitting Provider Patient is a 26 years old with a gentleman who presented to the ED with 2-day history right lower quadrant pain/patient was started had a epigastric pain yesterday and later on transferred to right lower quadrant pain. the pain is dull with nausea and vomiting. Patient denying fever or diarrhea. WBC 17,00. CT scan shows acute appendicitis. Patient speech [place]ian. 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 Principal Diagnosis acute appendicitis Discharge Exam Discharge examination and ROS was obtained via help with cargo mate Radha #[id number] Constitutional WD/WN, vitals as above cooperative and comfortable; no acute distress and not ill appearing Respiratory normal respiratory effort; no respiratory distress Gastrointestinal (Abdomen) Inspection/Auscultation: abdomen normal to inspection and + abdominal surgical incision (covered with clean/dry/intact dressings); abdomen not distended Percussion/Palpation: abdomen soft; abdomen nontender, no guarding, abdomen not rigid and abdomen not firm Skin no rashes, warm and dry Psychiatric A+Ox3, euthymic affect Discharge Data Allergies Allergy/AdvReac Type Severity Reaction Status Date / Time No Known Allergies Allergy Verified 09/08/22 00:16 Consultations 09/07/22 23:37 ED Decision to Admit Stat Procedures Performed Operation Date: 09/08/22 01:00 Actual Procedures p Laparoscopic Appendectomy(Not Applicable) - Conrado Breen MD Ordered Studies 09/07/22 22:07 CT abd pelvis IV con only Stat Hospital Course (1) Acute appendicitis: Patient taken to operating room for laparoscopic appendectomy by Dr. Breen in food inspector of 09/08/2022. Patient found to have acute appendicitis without perforation or abscess. Patient tolerated procedure and transferred to medical/surgical floor for postoperative care. diet advanced as tolerated, activity as tolerated, PO Percocet prn pain, and IV cefoxitin was continued. He was kept overnight for observation and pain management. Patient was discharged home on POD # 1 in stable condition. Total Time Total Time Spent Total Time Spent (In Minutes): 30 Total Time Includes: Examination of the Patient, Discharge Planning and Medication Reconciliation Discharge Plan Discharge Items Patient Disposition: Home - Self-Care Reason For Visit: VOMITING, LOWER ABDOMINAL PAIN Discharge Diagnosis: acute appendicitis Condition on Discharge: Good Activity: Per Instructions section Non-emergency contact: Surgeon Call non-emergency contact if: you have any medication questions, your pain is not controlled, your pain is worsening, your temperature is above 101, your wound has increased redness, your wound has increased drainage and your wound pain has increased Follow-up/Referrals: Conrado Breen MD [Physician] - (1-2 weeks) PCP,NO [Primary Care Provider] - Diet: Regular Addtl Attending Provider Instructions: Post-Surgical ~Discharge Instructions Activity Recommendations: - lifting limitation: (15-20 pounds for 4 weeks), - exercise/sex/sports limit: (nonstrenuous for 2 weeks), - driving or machine use limit: (none for 1 week or until pain free and no longer taking narcotic pain medication), - Shower/bathe limit: (june shower beginning Tuesday) Diet: - Resume previous diet SPECIAL CARE INSTRUCTIONS: - May shower on Tuesday, sponge bath around incisions and wash hair in meantime. On Tuesday, can remove outer dressings and let water run over area and pat dry. - Leave steri strips on for one week and then remove. They may fall off on their own that is okay. - Call the surgeon's office with any questions or concerns - - (ex. temperature higher than 101 degrees F, excessive bleeding or pain). MEDICATIONS: - Resume previous medications unless instructed otherwise by your surgeon. - Tylenol 650 mg every 6 hours as needed - Ibuprofen 600 mg every 6 hours as needed with food - Percocet 1 every 6 hours, as needed for severe pain FOLLOW UP VISIT: - If not already scheduled, please call the office to schedule a two week foll ow-up appointment. Office number Pending Studies at Discharge: Yes (surgical pathology, will be reviewed at postop visit) Stand-Alone Forms: My [employer], Smoking Cessation Medications and DC Order Prescriptions: New oxycodone-acetaminophen 5-325 mg tablet 1 tab PO Q6H PRN (Reason: pain) Qty: 5 0RF Discharge Orders: Discharge Order (Routine); Ordered 09/09/22 Ordered By: Trudi Larios/Other Patient Handouts: Appendectomy Admission Data Admit Date/Time: 09/08/22 02:13 Attending Provider: Conrado Breen Admit Provider: Conrado Breen Primary Care Provider: PCP,NO Other Providers: Conrado Breen
== END 2022-09-09 12:29 | disposition home or self-care (01) | DRG 343 ==
LOC: ED 21:54 → OR 09-08 01:01 → 3W 09-08 02:13
DX: K35.80 Unspecified acute appendicitis